=== PATIENT | male | born 1990 | race Caucasian/White ===

== ENCOUNTER → 2019-12-04 | Outpatient (CLI) | payer BC | LOC: M LABSMTC 11:42 | PROVIDERS: ATTEND Anesthesiology | DX: Z20.828 Contact with and (suspected) exposure to other viral communicable diseases (principal) | CPT/HCPCS: C9803; U0003 ==

== ENCOUNTER 2019-12-09 11:36 | Day surgery (SDC) | payer BC ==
[~2019-12-09] VITALS: Ht 170.2 cm; Wt 78.8 kg
[~2019-12-09 11:36] MED LIST: LIDOCAINE 2% 100MG/5ML SDV (FOR ANES.) As Ordered ONE; NS 1,000 ML IV ONE; propofoL 200 MG/20 ML VIAL As Ordered ONE
--- NOTE | 2019-12-09 13:28 | ROOR ---
Patient Name: Vick Mendiola Procedure Date: 12/09/2019 1:05 PM Date of : 1990 Age: 29 Room: [facility] Gender: Male Note Status: Finalized Procedure: Upper Endoscopy + Biopsies Indications: Epigastric abdominal pain, Heartburn, Exclusion of Marroquin's esophagus Providers: David Cancino MD Referring MD: Gideon Rivera Requesting Provider: Medicines: Monitored Anesthesia Care Complications: No immediate complications. Procedure: Pre-Anesthesia Assessment: - The heart rate, respiratory rate, oxygen saturations, blood pressure, adequacy of pulmonary ventilation, and response to care were monitored throughout the procedure. The Endoscope was introduced through the mouth, and advanced to the second part of duodenum. The upper GI endoscopy was accomplished without difficulty. The patient tolerated the procedure well. Findings: The Z-line was variable and was found 40 cm from the incisors. Multiple biopsies were obtained with cold forceps for evaluation to rule out Marroquin's Esophagus randomly at the gastroesophageal junction. A small hiatal hernia was present. The exam of the stomach was otherwise normal. Biopsies were taken with a cold forceps in the gastric antrum for Helicobacter pylori testing. The exam of the duodenum was otherwise normal. Impression: - Z-line variable, 40 cm from the incisors. - Small hiatal hernia. - Multiple biopsies were obtained at the gastroesophageal junction. - Biopsies were taken with a cold forceps for Helicobacter pylori testing. - The examination was otherwise normal. Recommendation: - Patient has a contact number available for emergencies. The signs and symptoms of potential delayed complications were discussed with the patient. Return to normal activities tomorrow. Written discharge instructions were provided to the patient. - High fiber diet. - Discharge patient to home. - Follow an antireflux regimen. - Continue present medications. - Await pathology results. - Telephone GI clinic for pathology results in 1 week. - Return to referring physician. - The findings and recommendations were discussed with the patient. David Cancino MD David Cancino MD 12/09/2019 1:27:42 PM Electronically signed by David Cancino MD Number of Addenda: 0 Note Initiated On: 12/09/2019 1:05 PM Estimated Blood Loss: Estimated blood loss: none.
[2019-12-09 13:50] VITALS: BP 127/77
== END 2019-12-09 14:00 | disposition home or self-care (01) ==
LOC: M OPP 11:36
PROVIDERS: ATTEND Internal Medicine Gastroenterology
DX: K22.8 Other specified diseases of esophagus (principal); K44.9 Diaphragmatic hernia without obstruction or gangrene; K21.9 Gastro-esophageal reflux disease without esophagitis; F17.210 Nicotine dependence, cigarettes, uncomplicated; R10.10 Upper abdominal pain, unspecified; R12 Heartburn

== ENCOUNTER 2021-05-23 10:09 | Emergency (ER) | payer BC ==
[~2021-05-23] VITALS: Ht 170.2 cm; Wt 85.8 kg
[2021-05-23] MEDS ORDERED: ONDANSETRON 4MG/2ML VIAL IV ONE (11:25)
[2021-05-23] MEDS: MORPHINE 4 MG/ML 1ML VIAL/SYRINGE (J2270) IV PRN ×2 (11:34→12:55)
[2021-05-23 12:37] LABS: RSV AMPLIFICATION NEGATIVE (NEGATIVE)
[2021-05-23] MEDS ORDERED: HYDR-3713 PO (13:31)
[2021-05-23 13:45] VITALS: BP 126/70
== END 2021-05-23 14:08 | disposition home or self-care (01) ==
LOC: M ED 10:09
DX: S32.010A Wedge compression fracture of first lumbar vertebra, initial encounter for closed fracture (principal); W13.2XXA Fall from, out of or through roof, initial encounter; Y92.018 Other place in single-family (private) house as the place of occurrence of the external cause; M51.26 Other intervertebral disc displacement, lumbar region; K21.9 Gastro-esophageal reflux disease without esophagitis; F17.210 Nicotine dependence, cigarettes, uncomplicated
CPT/HCPCS: 72125; 72128; 72131; 72148; 80047; 87631; 96374; 96375; 96376; 99284; J2270; J2405

== ENCOUNTER → 2021-05-25 | Outpatient (CLI) | payer BC ==
[~2021-05-25] MED LIST changes: +HYDR-3713 PO; -LIDOCAINE 2% 100MG/5ML SDV (FOR ANES.) As Ordered ONE; -NS 1,000 ML IV ONE; -propofoL 200 MG/20 ML VIAL As Ordered ONE
== END ==
LOC: M SOG 11:18
PROVIDERS: ATTEND Orthopaedic Surgery
DX: M48.56XA Collapsed vertebra, not elsewhere classified, lumbar region, initial encounter for fracture (principal)

== ENCOUNTER → 2021-06-15 | Outpatient (CLI) | payer BC | LOC: M SOG 08:12 | PROVIDERS: ATTEND Orthopaedic Surgery | DX: M48.56XA Collapsed vertebra, not elsewhere classified, lumbar region, initial encounter for fracture (principal) ==

== ENCOUNTER → 2021-07-06 | Outpatient (CLI) | payer BC | LOC: M SOG 08:09 | PROVIDERS: ATTEND Orthopaedic Surgery | DX: S32.010D Wedge compression fracture of first lumbar vertebra, subsequent encounter for fracture with routine healing (principal); W18.30XD Fall on same level, unspecified, subsequent encounter ==

== ENCOUNTER → 2021-08-17 | Outpatient (CLI) | payer BC | LOC: M SOG 09:38 | PROVIDERS: ATTEND Orthopaedic Surgery | DX: S32.010D Wedge compression fracture of first lumbar vertebra, subsequent encounter for fracture with routine healing (principal) ==

== ENCOUNTER → 2024-02-14 | Outpatient (CLI) | payer BC | LOC: M WUC 11:05 | PROVIDERS: ATTEND Nurse Practitioner Family | DX: M25.561 Pain in right knee (principal) ==

== ENCOUNTER → 2024-03-16 | Outpatient (CLI) | payer BC | LOC: M RAD 07:27 | PROVIDERS: ATTEND Physician Assistant | DX: M25.561 Pain in right knee (principal); M25.461 Effusion, right knee; M67.51 Plica syndrome, right knee; M22.41 Chondromalacia patellae, right knee ==

== ENCOUNTER 2025-02-21 12:17 | Emergency (ER) | payer BC, OTHER ==
[~2025-02-21] VITALS: Ht 172.7 cm; Wt 80.7 kg
[2025-02-21 12:54] LABS: BASO # 0.0 10^3/uL (0.0-0.2); BASO % 0.3 % (0.0-1.0); EOS # 0.0 10^3/uL (0.0-0.5); EOS % 0.2 % (0.0-3.0); LYMPH # 1.0 10^3/uL (1.5-5.0); LYMPH % 6.8 % (24.0-44.0); MONO # 1.0 10^3/uL (0.0-0.8); MONO % 6.7 % (2.0-8.0); NEUTROPHILS # 12.2 10^3/uL (1.5-8.5); NEUTROPHILS % 85.7 % (36.0-66.0); PLATELET COUNT, AUTOMATED 335 10^3/uL (150-450)
[2025-02-21 13:16] LABS: ETHYL ALCOHOL (ETHANOL) < 0.003 % (0.000-0.010)
[2025-02-21 13:17] LABS: ALT/SGPT 25 U/L (7.0-40); AST/SGOT 18 U/L (<34); CALCIUM LEVEL 9.3 MG/DL (8.5-10.1); CARBON DIOXIDE LEVEL 28 MMOL/L (20-31); CHLORIDE LEVEL 105 MMOL/L (98-107); CK-MB VALUE MASS 1.7 NG/ML (<3.6); CPK CREATINE PHOSPHOKINASE 172 U/L (46-171); CREATININE FOR GFR 0.82 MG/DL (0.70-1.30); GLOMERULAR FILTRATION RATE > 90.0 (>60); MB/CK RELATIVE INDEX 0.98 (< OR =4); POTASSIUM SERUM 4.1 MMOL/L (3.5-5.1); SODIUM LEVEL 140 MMOL/L (136-145)
[2025-02-21] MEDS: PANTOPRAZOLE 40MG VIAL IV ONE (14:16)
[2025-02-21] MEDS ORDERED: PROT1TAB2 PO (14:26)
[2025-02-21 14:30] VITALS: BP 143/61; TEMP 99; O2SAT 98
== END 2025-02-21 14:41 | disposition home or self-care (01) ==
LOC: M ED 12:17
DX: K44.9 Diaphragmatic hernia without obstruction or gangrene (principal); J68.8 Other respiratory conditions due to chemicals, gases, fumes and vapors; K42.9 Umbilical hernia without obstruction or gangrene; K21.9 Gastro-esophageal reflux disease without esophagitis; F12.10 Cannabis abuse, uncomplicated; F10.10 Alcohol abuse, uncomplicated; Z79.1 Long term (current) use of non-steroidal anti-inflammatories (NSAID)
CPT/HCPCS: 71045; 80048; 80076; 82077; 82550; 82553; 83690; 84484; 85025; 93005; 93041; 94760; 96374; 99284; J2470

== ENCOUNTER 2025-03-31 08:37 | Day surgery (SDC) | payer OTHER, BC ==
[~2025-03-31] VITALS: Ht 170.2 cm; Wt 82.6 kg
[~2025-03-31 08:37] MED LIST changes: +PANT40TA29 PO; +PROT1TAB2 PO
[2025-03-31] MEDS ORDERED: SCOPOLAMINE 1MG TRANSDERMAL PATCH TOP ONE (09:10)
[2025-03-31] MEDS ORDERED: LIDOCAINE 2% 100 MG/5 ML SDV (FOR ANES.) As Ordered ONE (09:43)
[2025-03-31] MEDS ORDERED: ONDANSETRON 4MG/2ML VIAL As Ordered ONE (09:43)
[2025-03-31] MEDS ORDERED: MIDAZOLAM INJ 2 MG/2 ML VIAL As Ordered ONE (09:43)
[2025-03-31] MEDS ORDERED: ACETAMINOPHEN 1000MG/100ML IV BAG As Ordered ONE (09:43)
[2025-03-31] MEDS ORDERED: KETOROLAC 30 MG/ML 1 ML VIAL As Ordered ONE (09:43)
[2025-03-31] MEDS ORDERED: SUGAMMADEX SODIUM 500 MG/5 ML VIAL As Ordered ONE (09:43)
[2025-03-31] MEDS ORDERED: ROCURONIUM BROMIDE 50MG/5ML VIAL As Ordered ONE (09:43)
[2025-03-31] MEDS ORDERED: dexAMETHasone 4 MG/ML 1 ML VIAL As Ordered ONE (09:43)
[2025-03-31] MEDS ORDERED: LR 1,000 ML IV SCH (09:45)
[2025-03-31] MEDS: ceFAZolin SOD 2 GM IV ONCE IV ONE (12:04)
[2025-03-31] MEDS: HEPARIN SOD 5000 UNITS/ML 1 ML VIAL/SYRINGE SQ ONE (12:05)
[2025-03-31] MEDS ORDERED: GLYCOPYRROLATE INJ 0.2 MG/ML 2 ML VIAL As Ordered ONE (12:16)
[2025-03-31] MEDS ORDERED: MORPHINE 2 MG/ML 1 ML VIAL IV PRN (13:50)
[2025-03-31] MEDS: HYDROMORPHONE HCL 0.5 MG/0.5 ML SYRINGE IV PRN (13:57)
[2025-03-31] MEDS: ONDANSETRON 4MG/2ML VIAL IV PRN (13:58)
[2025-03-31 15:40] VITALS: BP 114/55; TEMP 98.4; O2SAT 93
== END 2025-03-31 16:22 | disposition home or self-care (01) ==
LOC: M SDC 08:37
PROVIDERS: ATTEND Surgery
DX: K43.9 Ventral hernia without obstruction or gangrene (principal); K21.9 Gastro-esophageal reflux disease without esophagitis; Z79.899 Other long term (current) drug therapy
CPT/HCPCS: 49591; C1781; J0131; J0665; J0688; J1100; J1171; J1596; J1885; J2250; J2405; J3010; S2900